=== PATIENT | female | born 2000 | race Caucasian/White ===

== ENCOUNTER 2021-05-09 09:08 | Outpatient (CLI) | payer OTHER, SELFPAY ==
--- NOTE | ~2021-05-09 | CT_ITS ---
EXAMINATION: CT abdomen pelvis w con DATE: 05/09/2021 09:37 INDICATION: Small bowel mass in left abdomen. TECHNIQUE: Computed tomography (CT) of the abdomen and pelvis was performed with 100 mL Omnipaque 350 intravenous contrast. Automated exposure control and iterative reconstruction technique were employe d. The dose-length product was 829.26 mGy-cm. COMPARISON: None. FINDINGS: The visualized portions of the lung bases demonstrate subsegmental airspace opacities in ri ght middle lobe. No pleural effusion. The heart size is normal. No pericardial effusion. The spleen i s normal in size. The liver, gallbladder, pancreas, adrenal glands, and kidneys are normal. There are no dilated loops of bowel. The appendix is normal. There are no pathologically enlarged lymph nodes. There is no free intraperitoneal fluid. The bones are unremarkable. IMPRESSION: 1. No abnormal small bowel mass identified. 2. Subsegmental airspace opacities in right middle lobe, consistent with atelectasis versus pneumonia . Reviewed, dictated and finalized at location A. IMPRESSION: 1. No abnormal small bowel mass identified. 2. Subsegmental airspace opacities in right middle lobe, consistent with atelec tasis versus pneumonia.
== END 2021-05-09 09:09 ==
LOC: MICIMG 09:11
PROVIDERS: PCP Emergency Medicine; Visit Provider Emergency Medicine
DX: J90 Pleural effusion, not elsewhere classified (principal); R10.9 Unspecified abdominal pain; R91.8 Other nonspecific abnormal finding of lung field
CPT/HCPCS: 74177; Q9967

== ENCOUNTER 2021-06-04 15:38 | Observation (INO) | payer OTHER, SELFPAY ==
[2021-06-04] VITALS (7 sets, daily range): BP systolic 130–160; BP diastolic 66–86; PULSE 59–99; RESP 14–20; TEMP 36.3–36.9; O2SAT 98–100; BMI 29.7
--- NOTE | ~2021-06-04 | US_ITS ---
EXAMINATION:US venous doppler LE BI INDICATION:Laminar embolism TECHNIQUE: Multiple grayscale, color flow and Doppler images of the right and left lower extremity de ep venous systems were obtained and reviewed. COMPARISON:No prior studies for comparison. FINDINGS: The common femoral, superficial femoral and popliteal veins demonstrate normal respiratory variation, augmentation and compressibility. Color flow is also seen within the posterior tibial, pe roneal, greater saphenous and profunda veins. IMPRESSION: 1: No lower extremity deep venous thrombosis. Reviewed, dictated and finalized at location A.
--- NOTE | ~2021-06-04 | XR_ITS ---
XR chest 2V DATE: 06/04/2021 16:07 INDICATION: Cough. Lower back pain for 5 to 6 days. TECHNIQUE: PA and lateral views COMPARISON: None FINDINGS: Normal heart size. No hilar or mediastinal enlargement. No pulmonary infiltrate or consolidation, pleural effusion or pulmonary vascular congestion or pneumo thorax. Thoracic scoliosis. Impression: No active cardiac pulmonary disease Thoracic scoliosis Reviewed, dictated and finalized at location A. Impression: No active cardiac pulmonary disease Thoracic scoliosis
--- NOTE | ~2021-06-04 | CT_ITS ---
EXAMINATION: CTA chest PE protocol DATE: 06/04/2021 17:50 INDICATION: Shortness of breath, left-sided back pain, hemoptysis TECHNIQUE: Computed tomography angiography (CTA) of the chest was performed with 100 mL Omnipaque-350 intravenous contrast timed to evaluate the pulmonary arteries. Coronal maximum intensity projection 3D-reconstructions were created by the technologist. Automated exposure control and iterative reconst ruction technique were employed. Exam dose: 487.06 mGy-cm total exam DLP. COMPARISON: 06/04/2021 2 view chest FINDINGS: There are bilateral main pulmonary artery and bilateral upper and lower lobe and middle lob e pulmonary emboli. There are peripheral pulmonary infiltrates consistent with infarcts in the superior segment and poste rolateral aspect of the right lower lobe. The lungs are otherwise clear. No thoracic aortic aneurysm or dissection. Normal heart size. No pericardial or pleural effusion. No hilar or mediastinal mass lesion or lymphadenopathy. IMPRESSION: Bilateral pulmonary emboli Peripheral pleural-based infiltrates in the superior segment in posterior lateral basilar right lower lobe, likely due to pulmonary emboli/infarcts Dr. Mendosa telephoned the report on 06/04/2021 at 1819 hours to emergency room physician Dr. Lopez. Reviewed, dictated and finalized at Location A. Reviewed, dictated and finalized at location A. IMPRESSION: Bilateral pulmonary emboli Peripheral pleural-based infiltrates in the superior segment in posterior later al basilar right lower lobe, likely due to pulmonary emboli/infarcts Dr. Mendosa telephoned the report on 06/04/2021 at 1819 hours to emergency room erin Lopez.
--- NOTE | 2021-06-04 16:15 | ED.GENADULT ---
HPI - General Adult General Chief complaint: Upper Respiratory Infection Stated complaint: coughing up bloody sputum. Left back pain Time Seen by Provider: 06/04/21 16:09 Source: RN notes reviewed History of Present Illness HPI narrative: Patient presents to emergency department from home for hemoptysis. Patient states that for the past 5 days she has been having sputum that is been blood-streaked states for the past 2 days she has been having pain in her right mid to upper back she denies any fevers or chills or chest pain she denies any cough she denies any recent long trips patient states she is on control currently she denies any calf pain or history of DVT. 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 Related Data Home Medications Medication Instructions Recorded Confirmed desogestrel-ethinyl estradiol tablet 06/04/21 [Anitha] Allergies Allergy/AdvReac Type Severity Reaction Status Date / Time No Known Allergies Allergy Verified 06/04/21 16:18 Review of Systems Review of Systems: Gen.: Denies fevers or chills ENT: Denies congestion Respiratory: Denies shortness of breath ports cough with hemoptysis CV: Denies chest pain or palpitations GI: Denies abdominal pain nausea, emesis or diarrhea Musculoskeletal: Denies back pain or muscle pain Neuro: Denies numbness, tingling, weakness or focal weakness Skin: Denies rash Except as documented, all other systems reviewed and negative [facility] Past Medical History Medical History (Updated 06/04/21 @ 18:43 by Frederick Lopez DO) Patient denies significant medical history Social History Social History (Updated 06/04/21 @ 16:16 by Frederick Lopez DO) Smoking status: Never smoker Exam Narrative: APPEARANCE: No acute distress, nontoxic, resting in bed EYES: EOMI HEENT: Normocephalic, atraumatic, OMM RESPIRATORY: No respiratory distress Clear to auscultation bilaterally with no rhonchi wheezing or rales. CARDIOVASCULAR: Regular rate and rhythm without murmurs rubs or gallops. ABDOMINAL: Soft, nontender, nondistended, no rebound or guarding MUSCULOSKELETAl: Moves all extremities. No clubbing, cyanosis or edema. Bilateral calves soft and nontender NEURO: Awake and alert. Following commands, speech normal, no focal deficits SKIN:: Warm, dry. No rashes lesions or abrasions PSYCHIATRIC: Normal affect/mood, Course Course Emergency Course: Called and discussed with HODAN Pelletier for Dr. Diggs presentation work-up agrees with admission at this time agrees with plan for Lovenox with admission to [facility] telemetry request hypercoagulable panel Discussed with patient and family results of workup and diagnosis. Discussed need for admission. Patient and family understand and agree to current treatment plan Vital Signs Vital signs: Vital Signs Temperature 97.7 F 06/04/21 15:46 Pulse Rate 99 06/04/21 15:46 Respiratory Rate 20 06/04/21 15:46 Blood Pressure 144/76 H 06/04/21 15:46 Pulse Oximetry 98 06/04/21 15:46 Temperature 97.7 F 06/04/21 15:46 Pulse Rate 65 06/04/21 17:54 Respiratory Rate 18 06/04/21 17:54 Blood Pressure 130/71 06/04/21 17:54 Pulse Oximetry 100 06/04/21 17:54 Medical Decision Making Vital Signs Vital Signs: Vital Signs Temperature 97.7 F 06/04/21 15:46 Pulse Rate 99 06/04/21 15:46 Respiratory Rate 20 06/04/21 15:46 Blood Pressure 144/76 H 06/04/21 15:46 Pulse Oximetry 98 06/04/21 15:46 Temperature 97.7 F 06/04/21 15:46 Pulse Rate 65 06/04/21 17:54 Respiratory Rate 18 06/04/21 17:54 Blood Pressure 130/71 06/04/21 17:54 Pulse Oximetry 100 06/04/21 17:54 Lab Data Result diagrams: 06/04/21 16:36 06/04/21 16:36 Labs: Lab Results 06/04/21 06/04/21 06/04/21 Range/Units 16:36 16:36 16:36 WBC 8.0 (4.5-10.0) K/mm3 RBC 4.90 (4.2-5.4) M/mm3 Hgb 14.2 (12.0-15.0) g/dL Hct 42
[2021-06-04] MEDS: KETOROLAC 30 MG/ML VIAL (*BKC) IV PUSH (16:33)
[2021-06-04] MEDS: SODIUM CHLORIDE 0.9% IV 1,000 ML 999 ML IV CONT (16:34)
[2021-06-04 16:45] LABS: Basophils Percent Auto 0.2 % (0.2-1.2); Eosinophils Absolute Auto 0.1 K/mm3 (0-0.3); Eosinophils Percent Auto 0.9 % (0-4.4); Hematocrit 42.5 % (37.0-47.0); Hemoglobin 14.2 g/dL (12.0-15.0); Immature Granulocyte Absolute 0.02 K/mm3 (0.00-0.031); Immature Granulocyte Percent A 0.2 % (0-0.5); Lymphocytes Absolute Auto 2.29 K/mm3 (0.9-3.2); Lymphocytes Percent Auto 28.5 % (18.3-44.2); Mean Corpuscular HGB Conc 33.4 g/dl (32-36); Mean Corpuscular Volume 86.7 fl (80-100); Mean Platelet Volume 9.4 fl (7.4-10.4); Monocytes Absolute Auto 0.6 K/mm3 (0.1-0.6); Monocytes Percent Auto 6.8 % (2.6-8.5); Neutrophils Absolute Auto 5.1 K/mm3 (1.3-6.7); Neutrophils Percent Auto 63.4 % (45.5-73.1); Platelet Count Result 286 k/mm3 (150-375)
[2021-06-04 16:55] LABS: INR 0.9; Partial Thromboplastin Time 23.4 SECONDS (22.3-36.8); Prothrombin Time 11.9 Seconds (11.1-14.7)
[2021-06-04 16:58] LABS: Alanine Aminotransferase 20 U/L (4-35); Albumin Level 4.3 g/dL (3.5-5.1); Alkaline Phosphatase 74 U/L (38-126); Anion Gap 9 mmol/L (8-16); Aspartate Amino Transferase 23 U/L (14-36); Bilirubin,Total 0.2 mg/dL (0.2-1.3); Blood Urea Nitrogen 10 mg/dL (7-17); Calcium 9.4 mg/dL (8.4-10.2); Carbon Dioxide 26 mmol/L (22-30); Chloride 104 mmol/L (98-107); Estimated CRCL calculation 146 ml/min; Estimated Glomerular Filt Rate > 60; Glucose 109 mg/dL (65-110); Potassium 3.8 mmol/L (3.4-5.0); Sodium 139 mmol/L (137-145)
--- NOTE | 2021-06-04 18:45 | PC.NURSE ---
spoke to lab about lab orders, soa integration developer unsure of tubes required for draw. they are to reach out to [facility] for information.they are aware of pt admission, and will collect labs on floor when information is removed.
[2021-06-04] MEDS: ENOXAPARIN 100 MG/ML SYRINGE SUB-Q (18:55)
--- NOTE | 2021-06-04 19:00 | ECG_ITS ---
Measurements Intervals [place] Rate: 66 P: 49 OK: 131 QRS: 63 QRSD: 86 T: 58 QT: 420 QTc: 441 Interpretive Statements SINUS RHYTHM BORDERLINE T WAVE ABNORMALITY- ANTERIOR LEADS BASELINE WANDER- V3 BORDERLINE ECG Electronically Signed On 06-04-2021 20:19:38 CDT by Bimal Cooper D.O.
[2021-06-04 19:25] LABS: CRP 2.4 mg/dL (<1.0)
[2021-06-04 19:29] LABS: Troponin I < 0.012 ng/mL (0.000-0.034)
[2021-06-04 19:33] LABS: Erythrocyte Sedimentation Rate 10 mm/hr (0-20)
[2021-06-04 21:07] LABS: D Dimer 2.09 ug/mL (<0.48)
[2021-06-04 22:07] LABS: Troponin I < 0.012 ng/mL (0.000-0.034)
--- NOTE | 2021-06-04 23:00 | ADMGEN ---
This patient, Sherri Santillan, was admitted to [address] [place] [address] Room 300-01 at 20:00. Patient/family oriented to hospital policies and general routines including ID bracelet, bed and alarms, visiting hours, pain management, procedures, bathroom and other care routines, personal items, smoking policy, room service/diet, and visiting hours. Information on how to activate the Rapid Response Team has been discussed. Patient/Family are encouraged to report perceived risks to care and to ask questions if they do not understand what they are told or what they should do.
[2021-06-05] VITALS (9 sets, daily range): BP systolic 106–128; BP diastolic 58–61; PULSE 56–69; RESP 14–18; TEMP 36.2–36.7; O2SAT 97
[2021-06-05 01:13] LABS: Troponin I < 0.012 ng/mL (0.000-0.034)
[2021-06-05] MEDS: ENOXAPARIN 100 MG/ML SYRINGE SUB-Q ×2 (05:15→17:53)
--- NOTE | 2021-06-05 05:55 | PM.IMHP ---
H&P: HPI History of Present Illness Date/Time: 06/05/21 05:55 Chief Complaint: HEMOPTYSIS Narrative: THIS IS A 21-YEAR-OLD FEMALE WITH KNOWN SIGNIFICANT PAST MEDICAL HISTORY SHE PRESENTED TO THE EMERGENCY ROOM DUE TO COUGH AND HEMOPTYSIS FOR 5 DAYS AND PAIN ON HER BACK IN BETWEEN HER SHOULDER BLADES, NO FEVERS, NO RIGORS, NO CHILLS, NO NAUSEA, NO VOMITING, NO DIARRHEA, NO ABDOMINAL PAIN, NO PND, NO ORTHOPNEA ,NO CALVES PAIN, NO SYNCOPE OR NEAR SYNCOPE. 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 PRELIMINARY WORKUP WAS SIGNIFICANT FOR ACUTE PULMONARY EMBOLISM. Review of Systems Review of Systems: HEMOPTYSIS BACK PAIN IN BETWEEN THE SHOULDER BLADES Constitutional: Constitutional: Denies chills, Denies fever(s), Denies lethargy and Denies weakness Eyes: Eyes: Denies change in vision ENT: Denies nasal congestion, Denies nasal discharge and Denies nasal obstruction Cardiovascular: Cardiovascular: Denies chest pain with activity, Denies lightheadedness, Denies radiating jaw, neck or arm pain, Reports palpitations, Denies dyspnea and Denies dyspnea on exertion Respiratory: Comments: HEMOPTYSIS Gastrointestinal: Gastrointestinal: Denies abdominal pain, Denies diarrhea, Denies nausea and Denies vomiting Genitourinary: Genitourinary: Reports no additional female genitourinary complaints Musculoskeletal: Musculoskeletal: Reports no additional musculoskeletal complaints Integumentary/Breasts: Skin/Breast: Reports system reviewed and no additional complaints, except as docu Neurologic: Reports system reviewed and no additional complaints, except as documented Psychiatric: Psychiatric: Reports no additional psychiatric complaints Endocrine: Endocrine: Reports no additional endocrine complaints Hematologic/Lymphatic: Hematologic/Lymphatic: Reports no additional hematologic/lymphatic complaints Allergic/Immunologic: Allergic/Immunologic: Reports no additional allergic/immunologic complaints [facility] Past Medical History Medical History (Updated 06/04/21 @ 18:43 by Frederick Lopez DO) Patient denies significant medical history Family History Family History (Updated 06/04/21 @ 21:39 by Rosa Renee RN) Father High cholesterol Other Hypertension Social History Social History (Updated 06/04/21 @ 16:16 by Frederick Lopez DO) Smoking status: Never smoker Alcohol intake: never Substance use: never Spiritual care concerns: No Meds Home Medications and Allergies Home Medications Medication Instructions Recorded Confirmed Type desogestrel-ethinyl estradiol 0.5 tablet PO DAILY 06/04/21 06/04/21 History [Reyer] Allergies Allergy/AdvReac Type Severity Reaction Status Date / Time No Known Allergies Allergy Verified 06/04/21 21:32 Vital Signs Vital Signs - 24 hr 06/04/21 15:46 06/04/21 16:15 06/04/21 17:54 Temperature 97.7 F Pulse Rate 99 65 Respiratory Rate 20 18 Blood Pressure 144/76 H 130/71 Pulse Oximetry 98 98 100 06/04/21 19:51 06/04/21 20:00 06/04/21 21:00 Temperature 97.3 F L Pulse Rate 76 69 69 Respiratory Rate 14 18 18 Blood Pressure 153/86 H 160/68 H Pulse Oximetry 99 98 98 06/04/21 23:30 06/05/21 00:00 06/05/21 04:00 Temperature 98.5 F Pulse Rate 59 L 59 L 58 L Respiratory Rate 18 Blood Pressure 133/66 Pulse Oximetry 98 06/05/21 05:46 Temperature 97.2 F L Pulse Rate 61 Respiratory Rate 18 Blood Pressure 106/58 L Pulse Oximetry 97 Exam Narrative: LAYING IN BED Const: General: cooperative, comfortable, no acute distress, well developed, alert, awake and other (WELL-APPEARING) Nutritional Appearance: average body habitus and well nourished Orientation/consciousness: patient oriented x3 HENMT: Head: normal to inspection, normocephalic and atraumatic Ears: hearing grossly normal bilaterally General nose exam: Normal external nose present Face and sinus: normal facial exam Mouth: Yes Normal
[2021-06-05 06:22] LABS: Eosinophils Absolute Auto 0.1 K/mm3 (0-0.3); Eosinophils Percent Auto 1.9 % (0-4.4); Hematocrit 39.4 % (37.0-47.0); Hemoglobin 13.2 g/dL (12.0-15.0); Immature Granulocyte Absolute 0.01 K/mm3 (0.00-0.031); Immature Granulocyte Percent A 0.2 % (0-0.5); Lymphocytes Absolute Auto 1.89 K/mm3 (0.9-3.2); Lymphocytes Percent Auto 40.8 % (18.3-44.2); Mean Corpuscular HGB Conc 33.5 g/dl (32-36); Mean Corpuscular Hemoglobin 28.8 pg (26-34); Mean Platelet Volume 9.6 fl (7.4-10.4); Monocytes Absolute Auto 0.5 K/mm3 (0.1-0.6); Monocytes Percent Auto 9.7 % (2.6-8.5); Neutrophils Absolute Auto 2.2 K/mm3 (1.3-6.7); Neutrophils Percent Auto 47.4 % (45.5-73.1); Platelet Count Result 246 k/mm3 (150-375); Red Blood Count 4.58 M/mm3 (4.2-5.4); White Blood Count 4.6 K/mm3 (4.5-10.0)
[2021-06-05 06:42] LABS: Anion Gap 6 mmol/L (8-16); Blood Urea Nitrogen 9 mg/dL (7-17); Calcium 8.6 mg/dL (8.4-10.2); Carbon Dioxide 23 mmol/L (22-30); Chloride 109 mmol/L (98-107); Estimated CRCL calculation 146 ml/min; Estimated Glomerular Filt Rate > 60; Glucose 90 mg/dL (65-110); Sodium 138 mmol/L (137-145)
--- NOTE | 2021-06-05 10:58 | PM.IMPN ---
Progress Note: A&P Assessment and Plan (1) Pulmonary embolism: Code(s): I26.99 - Other pulmonary embolism without acute cor pulmonale Status: Acute Assessment and Plan: LIKELY SECONDARY TO THE USE OF HORMONAL CONTRACEPTIVES . HORMONAL CONTRACEPTIVES ON THERAPEUTIC LOVENOX WILL NEED ANTICOAGULATION AT LEAST FOR 3 MONTHS GOING HOME SUPPORTIVE CARE ECHOCARDIOGRAM IN A.M. WILL INITIATE ORAL ANTICOAGULATION Subjective Date/time seen: 06/05/21 10:58 Patient was seen during the morning rounds today. Patient is feeling much better. Mild shortness of breath no chest pain. No abdominal pain, nausea, no vomiting. Mood stable. Review of Systems Constitutional: Constitutional: Denies chills, Denies fever(s), Denies lethargy and Denies weakness Eyes: Eyes: Denies change in vision ENT: Denies nasal congestion, Denies nasal discharge and Denies nasal obstruction Cardiovascular: Cardiovascular: Denies chest pain with activity, Denies lightheadedness, Denies radiating jaw, neck or arm pain, Reports palpitations, Denies dyspnea and Denies dyspnea on exertion Respiratory: Respiratory: Denies dyspnea and Denies dyspnea on exertion Gastrointestinal: Gastrointestinal: Denies abdominal pain, Denies diarrhea, Denies nausea and Denies vomiting Genitourinary: Genitourinary: Reports no additional female genitourinary complaints Musculoskeletal: Musculoskeletal: Reports no additional musculoskeletal complaints Integumentary/Breasts: Skin/Breast: Reports system reviewed and no additional complaints, except as docu Neurologic: Reports system reviewed and no additional complaints, except as documented and Denies weakness Psychiatric: Psychiatric: Reports no additional psychiatric complaints Endocrine: Endocrine: Reports no additional endocrine complaints and Reports palpitations Hematologic/Lymphatic: Hematologic/Lymphatic: Reports no additional hematologic/lymphatic complaints Allergic/Immunologic: Allergic/Immunologic: Reports no additional allergic/immunologic complaints Exam Narrative: LAYING IN BED Const: General: cooperative, comfortable, no acute distress, well developed, alert, awake and other (WELL-APPEARING) Nutritional Appearance: average body habitus and well nourished Orientation/consciousness: patient oriented x3 HENMT: Head: normal to inspection, normocephalic and atraumatic Ears: hearing grossly normal bilaterally General nose exam: Normal external nose present Face and sinus: normal facial exam Mouth: Yes Normal oral and palatal mucosa present Teeth and gingiva: dentition normal Eyes: General: appearance normal, both eyes and all related structures Alignment and Position: alignment normal Sclera: sclerae normal Pupils: Equal, round and reactive pupils present EOM: EOMs intact bilaterally Neck: Neck: normal visual inspection, full ROM, no lymphadenopathy, supple and no JVD Thyroid: thyroid normal Lymphatic: no lymphadenopathy noted Resp: Effort & Inspection: normal respiratory effort and able to speak in complete sentences Auscultation: clear to auscultation bilaterally, no crackles, no rales, no rhonchi and no wheezes Cardio: Jugular venous distension: no JVD Rate: regular rate Rhythm: regular rhythm Heart sounds: S1 normal heart sound present and S2 normal heart sound present : General: Yes deferred Skin: General skin exam: normal color Rashes: no rashes Wounds: no wounds Neuro: General: patient oriented x3 and CN's II-XI intact bilaterally Cranial nerves: Yes CN's II-XII intact bilaterally and Yes Equal, round and reactive pupils present Cognition (Neuro): normal cognition Speech: normal speech Gait exam (Neuro): Normal gait present Motor exam (neuro): 5/5 motor strength present throughout Extrem: General: normal to inspection, full ROM, no joint enlargement and no pedal edema Objective Data Vital Signs Vital Signs: Vital Signs - 24 hr 06/04/21 15:46 06/04/21 16:15 06/04/21
[2021-06-06] VITALS (7 sets, daily range): BP systolic 99–124; BP diastolic 63–71; PULSE 52–83; RESP 14–16; TEMP 36.4–36.7; O2SAT 98–100
--- NOTE | 2021-06-06 | ECHOL_ITS ---
Patient Info Name: Sherri Santillan Age: 21 years : 2000 Gender: Female Ht: 72 in Wt: 219 lbs BSA: 2.27 m2 HR: 66 bpm BP: 99 / 71 mmHg Heart Rhythm: Sinus Rhythm Technical Quality: Good Exam Date: 06/06/2021 1:27 PM Exam Location: [facility] Pulmonary Exam Room: 300 Patient Status: Inpatient Admit Date: 06/04/2021 Staff Ordering Physician: Arnulfo Fox MD Water Pump Installer: Elle Feldman RDCS Attending Provider: Jeffrey Diggs MD Referring Physician: Ruddy MATTSON; Exam Type: CA echo doppler color flow Study Info Indications - PULMONARY EMBOLISM Complete two-dimensional, color flow and Doppler transthoracic echocardiogram is performed. Summary 1. Complete two-dimensional, color flow and Doppler transthoracic echocardiogram is performed. 2. Left ventricular systolic function is normal, estimated at 65-70%. 3. There is no increased left ventricular wall thickness. 4. Right ventricular systolic function is normal with TAPSE of 2.4. Mild hypertrophy at the RV apex. Prominent moderator band. 5. There is trace tricuspid valve regurgitation. 6. Mild pulmonary hypertension, estimated pulmonary arterial systolic pressure is 37 mmHg. 7. Thin and hypermobile. No evidence of shunt with color flow doppler. Consider bubble study. Left Ventricle Left ventricular chamber dimension is normal. Left ventricular systolic function is normal, estimated at 65-70%. There is no increased left ventricular wall thickness. The left ventricular diastolic function is normal. Right Ventricle Right ventricular chamber dimension is normal. Right ventricular systolic function is normal with TAPSE of 2.4. Mild hypertrophy at the RV apex. Prominent moderator band. Left Atria Left atrial chamber dimension is normal. Right Atria Right atrial chamber dimension is normal. Atrial Septum Thin and hypermobile. No evidence of shunt with color flow doppler. Consider bubble study. Aortic Valve The aortic valve is trileaflet. There is no aortic valve stenosis. There is no aortic valve regurgitation. Pulmonic Valve The pulmonic valve is normal. There is mild pulmonic regurgitation. Mitral Valve The mitral valve has normal leaflets. There is no mitral valve regurgitation. Tricuspid Valve The tricuspid valve leaflets are normal. There is trace tricuspid valve regurgitation. Mild pulmonary hypertension, estimated pulmonary arterial systolic pressure is 37 mmHg. Pericardium/Pleural The pericardium appears normal. There is small pericardial effusion. Inferior Vena Cava Normal inferior vena cava with >50% collapse upon inspiration consistent with normal right atrial pressure, 5 mmHg. Aorta The aortic root size at the sinus of Valsalva is normal. Left Ventricular Outflow Tract Name Value Normal LVOT 2D LVOT Diameter 2.1 cm LVOT Doppler LVOT Peak Gradient 6 mmHg LVOT Mean Gradient 4 mmHg LVOT VTI 26 cm LVOT VTI/AV VTI Ratio 1.0 LVOT Stroke Volume
[2021-06-06] MEDS: ENOXAPARIN 100 MG/ML SYRINGE SUB-Q (06:17)
[2021-06-06] MEDS: HYDROcodone/acetaminophen (*CRX) 5-325 MG TABLET 1 TAB PO (10:03)
--- NOTE | 2021-06-06 17:09 | PM.DS ---
DS: Admitting Diagnosis Discharge Date 06/06/2021 Admitting Diagnosis Chief Complaint: HEMOPTYSIS DS: Discharge Diagnosis Discharge Diagnosis (1) Pulmonary embolism: Qualifiers: Acute cor pulmonale presence: without acute cor pulmonale Chronicity: unspecified Pulmonary embolism type: unspecified Qualified Code(s): I26.99 - Other pulmonary embolism without acute cor pulmonale Code(s): I26.99 - Other pulmonary embolism without acute cor pulmonale Status: Acute Assessment and Plan: LIKELY SECONDARY TO THE USE OF HORMONAL CONTRACEPTIVES . HORMONAL CONTRACEPTIVES ON THERAPEUTIC LOVENOX WILL NEED ANTICOAGULATION AT LEAST FOR 3 MONTHS GOING HOME SUPPORTIVE CARE ECHOCARDIOGRAM IN A.M. WILL INITIATE ORAL ANTICOAGULATION patient with a pulmonary emboli remains on room air, patient does not have a DVT, DS: Summary Hospital Course Reason for hospitalization: Chief Complaint: HEMOPTYSIS Narrative: THIS IS A 21-YEAR-OLD FEMALE WITH KNOWN SIGNIFICANT PAST MEDICAL HISTORY SHE PRESENTED TO THE EMERGENCY ROOM DUE TO COUGH AND HEMOPTYSIS FOR 5 DAYS AND PAIN ON HER BACK IN BETWEEN HER SHOULDER BLADES, NO FEVERS, NO RIGORS, NO CHILLS, NO NAUSEA, NO VOMITING, NO DIARRHEA, NO ABDOMINAL PAIN, NO PND, NO ORTHOPNEA ,NO CALVES PAIN, NO SYNCOPE OR NEAR SYNCOPE. 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 PRELIMINARY WORKUP WAS SIGNIFICANT FOR ACUTE PULMONARY EMBOLISM. Hospital Course: patient to follow up with Dr. Astudillo Oncologist [phone] and her primary care provider as soon as possible, patient instructed if any symptoms gets worsen to go to nearest emergency department. patient will take Eliquis 10mg twice a day for 1 week and there after 5mg twice a day. patient with a pulmonary emboli remains on room air, patient does not have a DVT, Status at Discharge Functional status at discharge: independent ambulation Overall status at discharge: patient is back to baseline Time Spent with Patient Time attestation: Total time spent providing and/or coordinating discharge services: Time spent: Greater than 30 minutes Exam Narrative: Patient is comfortable, NAD HEENT: eyes are clear and none icteric LUNGS: normal respiratory effort ABD: nondistended Lower extremities: no edema SKIN: nonjaundiced Neuro: grossly intact normal speech. Discharge Plan Discharge Attending physician on discharge: Adwoa Merrill Consulting providers: Arnulfo Fox V. ; Curtis Sheppard ; Alex Monroy ; Bimal Cooper ; Quoc Mendosa ; Blane Briones Discharging Clinician: Adwoa Merrill Patient Disposition: Home, Self-Care Activity: as tolerated Diet: heart healthy Discharge Instructions: patient to follow up with Dr. Astudillo Oncologist [phone] and her primary care provider as soon as possible, patient instructed if any symptoms gets worsen to go to nearest emergency department. patient will take Eliquis 10mg twice a day for 1 week and there after 5mg twice a day. Patient Instructions: Antibiotic Form, Apixaban (By mouth), Pain Management (DC), Hypercoagulation (DC) Stand Alone Forms: General Discharge Information Follow-up/Referrals: True [facility]studillo MD [Physician[facility] [Primary Care Provider] - Discharge Medications: New Eliquis 5 mg Tablet 10 mg PO Q12HR Qty: 13 RF: 0 Eliquis 5 mg tablet 5 mg PO BID Qty: 60 RF: 2 Held desogestrel-ethinyl estradiol [Anitha] 0.15-0.03 mg tablet 0.5 tablet PO DAILY RF: 0 Hold Instructions: hold until seen by her primary care provider Date of admission: 06/04/21 18:32 Primary Care Provider: Felix,Meena Awad Admitting Provider: Jeffrey Diggs Attending physician on admission: Adwoa Merrill Condition: Stable
[2021-06-06] MEDS: APIXABAN 5 MG TABLET 10 MG PO (18:13)
[2021-06-08 05:11] LABS: Anti Nuclear Antibody Pattern Nuclear, Nucleolar
[2021-06-08 20:38] LABS: Antithrombin III Activity 94 % normal (80-135)
[2021-06-08 20:45] LABS: Lupus dRVVT 1:1 Mix Interpreta Not Indicated; Lupus dRVVT Screen 41 sec (<=45); PTT-LA Screen 40 sec (<=40)
[2021-06-08 20:48] LABS: Homocysteine 8.6 umol/L (<10.4)
[2021-06-09 15:50] LABS: Anti Cardio Antibody IgM <2.0 MPL-U/mL (<20.0); Anti Cardiolipin Antibody IgA <2.0 APL-U/mL (<20.0); Anti Cardiolipin Antibody IgG <2.0 GPL-U/mL (<20.0)
[2021-06-09 19:25] LABS: Factor VIII Activity 198 % normal (50-180)
[2021-06-10 11:13] LABS: Protein C Antigen 127 % (70-140)
--- NOTE | 2021-06-11 11:00 | PC.NURSE ---
patient called 06/11/21 to say that she coughed up blood that looked like a clot. patient states feeling short of breath, and having pain /10 with deep breathing. patient advised to follow up with her physician or come to the ER to be evaluated. patient verbalized understanding
[2021-06-13 14:46] LABS: Factor V (Leiden) Mutation NEGATIVE
== END 2021-06-06 18:35 | disposition home or self-care (01) ==
LOC: ANHED 18:43 → ANH3MEDSUR 22:18
PROVIDERS: Admitting Provider Internal Medicine; Emergency Provider Emergency Medicine; PCP Emergency Medicine; Visit Provider Family Medicine
DX: I26.99 Other pulmonary embolism without acute cor pulmonale (principal); R04.2 Hemoptysis
CPT/HCPCS: 36415; 71046; 71275; 80048; 80053; 81025; 81240; 81241; 81291; 83090; 84484; 85025; 85240; 85300; 85302; 85303; 85306; 85380; 85610; 85613; 85652; 85730; 86038; 86039; 86140; 86147; 93005; 93308; 93970; 96361; 96372; 96374; 99285; A9270; G0378; J1650; J1885; J7030; Q9967

== ENCOUNTER 2021-06-09 08:31 | Emergency (ER) | payer OTHER, SELFPAY ==
[2021-06-09] VITALS (14 sets, daily range): BP systolic 113–147; BP diastolic 51–82; PULSE 59–85; RESP 13–24; TEMP 36.8; O2SAT 98–99
--- NOTE | ~2021-06-09 | CT_ITS ---
EXAMINATION: CTA chest PE protocol DATE: 06/09/2021 11:04 CDT INDICATION: Pulmonary embolism seen on prior examination. TECHNIQUE: Computed tomographic angiography (CTA) of the chest was performed with 100 mL Omnipaque-35 0 intravenous contrast. The dose-length product was 398.80 mGy-cm. Maximum intensity projection 3D-re constructions of the aorta and other arteries were constructed by the technologist on a separate work station. Automated exposure control and iterative reconstruction technique were employed. COMPARISON: CT dated 06/04/2021. FINDINGS: Study is suboptimal for evaluation of pulmonary arteries. There are filling defects in the left lower lobe and right lower lobe pulmonary arteries, consistent with pulmonary embolism. New smal l right pleural effusion. Heart size is normal. No thoracic lymphadenopathy. There is a wedge-shaped consolidation in the superior segment of the right lower lobe, likely pulmonary infarction. There are additional wedge shaped areas of consolidation inferiorly in the right lower lobe. No endobronchial lesions. Upper abdomen is unremarkable. No endobronchial lesions. No evidence for aortic aneurysm or dissection. IMPRESSION: 1. Suboptimal study. Persistent pulmonary embolism of lower lobe pulmonary arteries. 2: Developing wedge-shaped areas of peripheral consolidation in the right lower lobe, consistent wit h pulmonary infarction. 3: Small right pleural effusion. Reviewed, dictated and finalized at location A. IMPRESSION: 1. Suboptimal study. Persistent pulmonary embolism of lower lobe pulmonary vernell nalini. 2: Developing wedge-shaped areas of peripheral consolidation in the right lowe r lobe, consistent with pulmonary infarction. 3: Small right pleural effusion.
[2021-06-09 09:20] LABS: Anion Gap 11 mmol/L (8-16); Blood Urea Nitrogen 14 mg/dL (7-17); Calcium 9.5 mg/dL (8.4-10.2); Carbon Dioxide 24 mmol/L (22-30); Chloride 106 mmol/L (98-107); Estimated CRCL calculation 146 ml/min; Estimated Glomerular Filt Rate > 60; Glucose 106 mg/dL (65-110); Potassium 4.4 mmol/L (3.4-5.0); Sodium 141 mmol/L (137-145)
[2021-06-09 09:24] LABS: Basophils Percent Auto 0.2 % (0.2-1.2); Eosinophils Absolute Auto 0.1 K/mm3 (0-0.3); Eosinophils Percent Auto 1.4 % (0-4.4); Hematocrit 42.9 % (37.0-47.0); Hemoglobin 14.6 g/dL (12.0-15.0); Immature Granulocyte Absolute 0.03 K/mm3 (0.00-0.031); Immature Granulocyte Percent A 0.5 % (0-0.5); Lymphocytes Absolute Auto 2.04 K/mm3 (0.9-3.2); Lymphocytes Percent Auto 34.9 % (18.3-44.2); Mean Corpuscular Hemoglobin 29.2 pg (26-34); Mean Corpuscular Volume 85.8 fl (80-100); Mean Platelet Volume 9.5 fl (7.4-10.4); Monocytes Absolute Auto 0.5 K/mm3 (0.1-0.6); Monocytes Percent Auto 8.5 % (2.6-8.5); Neutrophils Absolute Auto 3.2 K/mm3 (1.3-6.7); Neutrophils Percent Auto 54.5 % (45.5-73.1); Platelet Count Result 300 k/mm3 (150-375); Red Cell Distribution Width 12.6 % (11.5-14.5); White Blood Count 5.9 K/mm3 (4.5-10.0)
--- NOTE | 2021-06-09 10:45 | PC.NURSE ---
PT STATES NO CHANCE OF . NEGATIVE TEST OBTAINED .SHE WILL SIGN A WAIVER FOR CT. CT HAS BEEN NOTIFIED AND WILL COME AND GET HER TEJAS
--- NOTE | 2021-06-09 11:57 | ED.GENADULT ---
HPI - General Adult General Chief complaint: Back Pain/Injury Stated complaint: back pain, , blood clots in lungs' Time Seen by Provider: 06/09/21 08:37 Source: patient Mode of arrival: ambulatory Limitations: no limitations History of Present Illness HPI narrative: 21-year-old here with complaints of right upper back pain for past 2 days. Patient was recently diagnosed with PE and is presently taking Eliquis. She states that every time she coughs she has significant pain in the right upper back. She denies any shortness of breath. No history of fever or chills. She states that she has been taking medication as prescribed. Onset (ago): day(s) (2) Location: back Radiation: non-radiation Severity: moderate Quality: aching Pain Consistency: constant Relieving factors: none Exacerbating factors: other (coughing) Associated symptoms: denies other symptoms Related Data Home Medications Medication Instructions Recorded Confirmed desogestrel-ethinyl estradiol 0.5 tablet PO DAILY 06/04/21 06/04/21 [Anitha] Allergies Allergy/AdvReac Type Severity Reaction Status Date / Time No Known Allergies Allergy Verified 06/09/21 09:04 Review of Systems Review of Systems: All systems reviewed & are unremarkable except as noted in HPI and below Constitutional: Constitutional: Reports no additional constitutional complaints Eyes: Eyes: Reports no additional eye complaints ENT: Reports system reviewed and no additional complaints, except as documented Cardiovascular: Cardiovascular: Reports no additional cardiovascular complaints Respiratory: Respiratory: Reports no additional respiratory complaints Gastrointestinal: Gastrointestinal: Reports no additional gastrointestinal complaints Musculoskeletal: Musculoskeletal: Reports no additional musculoskeletal complaints Integumentary/Breasts: Skin/Breast: Reports system reviewed and no additional complaints, except as docu Neurologic: Reports system reviewed and no additional complaints, except as documented PMFSH Past Medical History Medical History Patient denies significant medical history Family History Family History Father High cholesterol Other Hypertension Social History Social History Smoking status: Never smoker Alcohol intake: never Substance use: never Spiritual care concerns: No Exam Narrative: GENERAL: Well-appearing, well-nourished, and in no acute distress. HEAD: Normocephalic, atraumatic. EYES: PERRLA and EOMI. NECK: Supple. CHEST: Clear to auscultation. No respiratory distress. HEART: Regular rate and rhythm. No murmur heard. Normal peripheral pulses. ABDOMEN: Soft, nontender, nondistended, normal active bowel sounds. EXTREMITIES: Normal range of motion. No edema. SKIN: Warm, dry, no rash. NEURO: No focal deficits. Alert and oriented x3. PSYCH: Normal mood and affect. Course Course Emergency Course: Patient comfortably sitting on the bed in no discomfort. Her SPO2 is almost 99 -100%. Informed her about the lab work and repeat CT scan. Advised her to continue her Eliquis as prescribed. Take Tylenol for pain as needed. Follow-up with her primary doctor. Vital Signs Vital signs: Vital Signs Temperature 36.8 C 06/09/21 08:35 Pulse Rate 85 06/09/21 08:35 Respiratory Rate 18 06/09/21 08:35 Blood Pressure 138/82 06/09/21 08:35 Pulse Oximetry 98 06/09/21 08:35 Temperature 36.8 C 06/09/21 08:35 Pulse Rate 68 06/09/21 10:31 Respiratory Rate 16 06/09/21 10:31 Blood Pressure 125/66 06/09/21 10:31 Pulse Oximetry 99 06/09/21 10:31 Medical Decision Making Vital Signs Vital Signs: Vital Signs Temperature 36.8 C 06/09/21 08:35 Pulse Rate 85 06/09/21 08:35 Respiratory Rate 18 06/09/21 08:35 Blood Pressure 138/82 06/09
== END 2021-06-09 12:40 | disposition home or self-care (01) ==
PROVIDERS: Emergency Provider Family Medicine; PCP Emergency Medicine
DX: I26.99 Other pulmonary embolism without acute cor pulmonale (principal); R07.89 Other chest pain; Z79.01 Long term (current) use of anticoagulants; R91.8 Other nonspecific abnormal finding of lung field
CPT/HCPCS: 36415; 71275; 80048; 85025; 99284; Q9967

== ENCOUNTER 2021-11-08 10:02 | Emergency (ER) | payer OTHER, SELFPAY ==
[2021-11-08] VITALS (10 sets, daily range): BP systolic 110–129; BP diastolic 64–78; PULSE 59–72; RESP 9–20; TEMP 36.5–36.6; O2SAT 96–100
--- NOTE | ~2021-11-08 | XR_ITS ---
EXAMINATION: XR chest 2V 11/08/2021 11:51 INDICATION: Cough and hemoptysis PROCEDURE: 2 view chest COMPARISON: 06/04/2021 FINDINGS: The lungs are clear. The cardiomediastinal silhouette is within normal limits. There are no pleural effusions. There is no pneumothorax suspected. IMPRESSION: 1: NO ACUTE CARDIOPULMONARY DISEASE. Reviewed, dictated and finalized at location B. 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
--- NOTE | 2021-11-08 11:23 | ED.GENADULT ---
HPI - General Adult General Chief complaint: Shortness of Breath/Dyspnea Stated complaint: Needs CT scan Time Seen by Provider: 11/08/21 11:17 Source: patient Mode of arrival: ambulatory Limitations: no limitations History of Present Illness HPI narrative: 21-year-old female presents to the ER with 1 day of cough and hemoptysis. Patient states she had a recent diagnosis of pulmonary embolism 2 to 3 months ago. Patient was on Eliquis but recently switched off to 1 baby aspirin daily by PCP. Patient denies any fevers, shortness of breath, or shortness of breath with exertion. Patient states her pulmonary embolism contributed to control. Patient has DC'd control. Onset (ago): day(s) (1) Related Data Home Medications Medication Instructions Recorded Confirmed aspirin [Aspir-81] 81 mg PO DAILY 11/08/21 Allergies Allergy/AdvReac Type Severity Reaction Status Date / Time No Known Allergies Allergy Verified 11/08/21 11:03 Review of Systems Review of Systems: All systems reviewed & are unremarkable except as noted in HPI and below Constitutional: Constitutional: Reports no additional constitutional complaints Eyes: Eyes: Reports no additional eye complaints ENT: Reports system reviewed and no additional complaints, except as documented Cardiovascular: Cardiovascular: Reports no additional cardiovascular complaints Respiratory: Respiratory: Reports hemoptysis Gastrointestinal: Gastrointestinal: Reports no additional gastrointestinal complaints Genitourinary: Genitourinary: Reports no additional female genitourinary complaints Musculoskeletal: Musculoskeletal: Reports no additional musculoskeletal complaints Integumentary/Breasts: Skin/Breast: Reports system reviewed and no additional complaints, except as docu Neurologic: Reports system reviewed and no additional complaints, except as documented Psychiatric: Psychiatric: Reports no additional psychiatric complaints Endocrine: Endocrine: Reports no additional endocrine complaints Hematologic/Lymphatic: Hematologic/Lymphatic: Reports no additional hematologic/lymphatic complaints Allergic/Immunologic: Allergic/Immunologic: Reports no additional allergic/immunologic complaints [facility] Past Medical History Medical History Patient denies significant medical history Family History Family History Father High cholesterol Other Hypertension Social History Social History Smoking status: Never smoker Alcohol intake: never Substance use: never Spiritual care concerns: No Exam Narrative: General appearance: Well-developed, well-nourished Skin: Normal color Head: Normocephalic, nontraumatic Eyes: Clear conjunctiva ENT: Oropharynx normal, ears normal, nose normal Neck: Supple, nontender Chest and respiratory: Airway patent, no respiratory distress, no accessory muscle use Heart: Regular rate/rhythm Abdomen: Soft, nontender, no organomegaly, quiet bowel sounds Vascular: Normal peripheral pulses, normal capillary refill. Musculoskeletal: Normal range of motion, nontender back Neurologic: Alert and oriented ?3, [employer] is normal as tested, no gross motor deficit Course Course Emergency Course: Chest x-ray and labs are normal. Will refer to PCP. Vital Signs Vital signs: Vital Signs Temperature 36.6 C 11/08/21 10:20 Pulse Rate 67 11/08/21 10:20 Respiratory Rate 18 11/08/21 10:20 Blood Pressure 129/78 11/08/21 10:20 Pulse Oximetry 99 11/08/21 10:20 Temperature 36.5 C 11/08/21
[2021-11-08 11:40] LABS: Basophils Percent Auto 0.1 % (0.2-1.2); Eosinophils Percent Auto 0.6 % (0-4.4); Hematocrit 41.4 % (37.0-47.0); Hemoglobin 13.4 g/dL (12.0-15.0); Immature Granulocyte Absolute 0.01 K/mm3 (0.00-0.031); Immature Granulocyte Percent A 0.1 % (0-0.5); Lymphocytes Absolute Auto 2.06 K/mm3 (0.9-3.2); Lymphocytes Percent Auto 29.7 % (18.3-44.2); Mean Corpuscular HGB Conc 32.4 g/dl (32-36); Mean Corpuscular Hemoglobin 28.8 pg (26-34); Mean Corpuscular Volume 88.8 fl (80-100); Mean Platelet Volume 9.5 fl (7.4-10.4); Monocytes Absolute Auto 0.6 K/mm3 (0.1-0.6); Monocytes Percent Auto 8.1 % (2.6-8.5); Neutrophils Absolute Auto 4.3 K/mm3 (1.3-6.7); Neutrophils Percent Auto 61.4 % (45.5-73.1); Platelet Count Result 255 k/mm3 (150-375); Red Blood Count 4.66 M/mm3 (4.2-5.4); White Blood Count 6.9 K/mm3 (4.5-10.0)
[2021-11-08 11:45] LABS: Alanine Aminotransferase 28 U/L (4-35); Albumin Level 4.2 g/dL (3.5-5.1); Alkaline Phosphatase 77 U/L (38-126); Anion Gap 7 mmol/L (8-16); Aspartate Amino Transferase 29 U/L (14-36); Bilirubin,Total 0.2 mg/dL (0.2-1.3); Blood Urea Nitrogen 17 mg/dL (7-17); Calcium 9.1 mg/dL (8.4-10.2); Carbon Dioxide 26 mmol/L (22-30); Chloride 105 mmol/L (98-107); Estimated CRCL calculation 132 ml/min; Estimated Glomerular Filt Rate > 60; Glucose 93 mg/dL (65-110); Sodium 138 mmol/L (137-145)
--- NOTE | 2021-11-08 11:47 | PC.NURSE ---
Patient transported out of ED to Radiology for CT>
--- NOTE | 2021-11-08 12:14 | PC.NURSE ---
Patient returned to room from CT. Denies complaints at this time. Call light within reach and family at bedside. Will continue to monitor.
[2021-11-08 12:19] LABS: D Dimer 0.23 ug/mL (<0.48)
== END 2021-11-08 12:50 | disposition home or self-care (01) ==
PROVIDERS: Emergency Provider Nurse Practitioner Family; PCP Emergency Medicine
DX: R05.9 Cough, unspecified (principal); R04.2 Hemoptysis; Z86.711 Personal history of pulmonary embolism; Z79.82 Long term (current) use of aspirin
CPT/HCPCS: 36415; 71046; 80053; 85025; 85380; 99283

== ENCOUNTER 2022-10-09 10:48 | Emergency (ER) | payer OTHER, SELFPAY ==
[2022-10-09 10:53] VITALS: BP 127/74; PULSE 62; RESP 14; TEMP 36.7; O2SAT 97
--- NOTE | 2022-10-09 12:07 | ED.UPPEXIN ---
HPI - Extremity Injury (Upper) General Chief Complaint: Extremity Injury, Upper Stated Complaint: finger laceration Time Seen by Provider: 10/09/22 11:13 Source: patient History of Present Illness HPI narrative: This pleasant 22 year old female patient presents to the ER after cutting her right third finger attempting to open a can. She has a laceration with bleeding controlled. She is not on any blood thinners at this time besides aspirin. No other complaints or injuries/symptoms. She has intact AROM and intact sensation. Onset (ago): hour(s) (1) Other injuries: none Relieving factors: none Exacerbating factors: movement of extremity Related Data Home Medications Medication Instructions Recorded Confirmed aspirin 81 mg tablet,delayed 81 mg PO DAILY 11/08/21 release Allergies Allergy/AdvReac Type Severity Reaction Status Date / Time No Known Allergies Allergy Verified 10/09/22 11:16 Review of Systems Review of Systems: All systems reviewed & are unremarkable except as noted in HPI and below PMFSH Past Medical History Medical History Patient denies significant medical history Family History Family History Father High cholesterol Other Hypertension Social History Social History Smoking status: Never smoker Alcohol intake: never Substance use: never Spiritual care concerns: No Exam Const: General: cooperative, healthy appearing, comfortable and no acute distress Nutritional Appearance: average body habitus and well nourished Orientation/consciousness: oriented to person, oriented to place and patient oriented x3 Limitations: no limitations HENMT: Head: normal to inspection Ears: hearing grossly normal bilaterally and external ears normal Face/Nose/Sinus: Normal external nose present Throat: posterior oropharynx normal Eyes: General: appearance normal, both eyes and all related structures Neck: Neck: normal visual inspection, full ROM, no lymphadenopathy and supple Resp: Effort & Inspection: normal respiratory effort Auscultation: clear to auscultation bilaterally Cardio: Rate: regular rate Rhythm: regular rhythm Heart sounds: S1 normal heart sound present and S2 normal heart sound present GI: Inspection: normal to inspection GI Palp: No Tenderness to palpation present (GI) Auscultation: normal bowel sounds Back/Spine/Pelvis: Back: no CVA tenderness Skin: General skin exam: normal color Lesions: no lesions Rashes: no rashes Trauma: laceration right distal 3rd finger irregular, actively bleeding, superficial and sensation intact Nails: normal Neuro: General: oriented to person, oriented to place, oriented to time, gait normal, tone normal, moves all extremities, Normal light touch and pain sensation, no focal motor deficits and CN's II-XI intact bilaterally Speech: normal speech Extrem: General: normal to inspection, full ROM and capillary refill normal Psych: Appearance: grossly normal and well kempt Course Course Emergency Course: Pt's laceration was cleaned thoroughly and repaired as noted. Pt. tolerated well without discomfort. Vital Signs Vital signs: Vital Signs Temperature 98.0 F 10/09/22 10:53 Pulse Rate 62 10/09/22 10:53 Respiratory Rate 14 10/09/22 10:53 Blood Pressure 127/74 10/09/22 10:53 Pulse Oximetry 97 10/09/22 10:53 Temperature 98.0 F 10/09/22 10:53 Pulse Rate 62 10/09/22 10:53 Respiratory Rate 14 10/09/22 10:53 Blood Pressure 127/74 10/09/22 10:53 Pulse Oximetry 97 10/09/22 10:53 Procedures Laceration Laceration 1: Date: 10/09/22 Time: 12:12 Site: hand (Right third finger) Side (If applicable): right Size (cm): 2.5 Description: irregular Depth: simple, single layer Local
== END 2022-10-09 12:18 | disposition home or self-care (01) ==
PROVIDERS: Emergency Provider Nurse Practitioner Adult Health; PCP Emergency Medicine
DX: S61.212A Laceration without foreign body of right middle finger without damage to nail, initial encounter (principal); W26.8XXA Contact with other sharp object(s), not elsewhere classified, initial encounter
CPT/HCPCS: 12001; 99282